=== PATIENT | male | born 1955 | race Caucasian/White ===

== ENCOUNTER → 2022-06-12 14:03 | Outpatient (BNVA) | payer MEDICARE, OTHER, SELFPAY | PROVIDERS: Family Provider Internal Medicine; Visit Provider Nurse Practitioner Family | DX: R68.89 Other general symptoms and signs (principal); U07.1 COVID-19 | CPT/HCPCS: 87426 ==

== ENCOUNTER → 2023-11-13 15:09 | Outpatient (BNVA) | payer MEDICARE, OTHER, SELFPAY | PROVIDERS: Family Provider Internal Medicine; Visit Provider Nurse Practitioner Family | DX: R51.9 Headache, unspecified (principal); R50.9 Fever, unspecified | CPT/HCPCS: 87426 ==

== ENCOUNTER → 2024-01-23 09:00 | Outpatient (BNVA) | payer OTHER, SELFPAY | PROVIDERS: Family Provider Internal Medicine; Visit Provider Internal Medicine Cardiovascular Disease | DX: R55 Syncope and collapse (principal); I49.1 Atrial premature depolarization; I49.3 Ventricular premature depolarization; R00.1 Bradycardia, unspecified; I47.10 Supraventricular tachycardia, unspecified | CPT/HCPCS: 93246 ==

== ENCOUNTER 2024-01-30 10:32 | Outpatient (CLI) | payer OTHER, SELFPAY ==
--- NOTE | 2024-01-30 | ECG_ITS ---
[employer] Test Date: 2024-01-30 Pat Name: Fili Dalton Department: Room: Gender: Male Community Artist: : 1955 Requested By: Lexi Leger Order Number: [id number] Cirilo MD: Nikko Kramer M.D. Interpretive Statements Lung unchanged pre/post procedure; Intraprocedure shortess of breath; Symptoms resoled by discharge PROCEDURE: At the baseline, the EKG revealed sinus bradycardia with a rate of [address] Ts.. The baseline heart was 54 bpm with a blood pressue of 148/71 mm of Hg Lexiscan was infused over a period of 20 seconds. A total of 0.4 milligrams of Lexiscan was infused. The stress phase was continued for a total of 5 minutes. Heart rate at the end of the stress phase was 72 bpm with a blood pressure 130/71 mm of Hg. The EKG at the peak infusion revealed no significant changes. Sestamibi was injected 20 seconds after the Lexiscan infusion. Heart rate at the end of the recovery phase was 65 bpm with a blood pressure was not taken CONCLUSION: 1. No significant EKG changes with the LexiScan infusion 2. No LexiScan induced chest pain or cardiac arrhythmia 3. Normal blood pressure and heart rate response 4. Sestamibi/sestamibi perfusion scan pending; see separate report. Electronically Signed On 02-01-2024 13:04:36 [employer] by Nikko Kramer M.D. [email or web address]
[2024-01-30 10:41] VITALS: BMI 17.9
--- NOTE | 2024-01-30 10:45 | NMCV_ITS ---
NM michelle perf SPECT r/s* [id number] Fili Dalton Age: 68 Gender: M : 1955 Exam Date: 01/30/2024 11:28 Ordering Phys: Lexi Leger MD Technologist: WILBUR Garvin Exam Location: [facility] Indications: cp STRESS TEST Please see separate stress test report in [facility] for full findings IMAGE PROTOCOL Rest/Stress 1 Lexiscan Day Radiopharmaceutical Dose (mCi) Administration Site Administered by Rest: Tc-99m 10.6 IV WILBUR Zacarias Sestamibi Stress:Tc-99m 32.9 IV WILBUR Garvin Sestamijessica Rest: 30-Jan-2024 60 Discovery 630 Stress: 30-Jan-2024 30 Discovery 630 0.4mg Lexiscan. Supine position only as patient was unable to lay prone. SPECT RESULTS Technical Quality: Good Raw Data Analysis: Normal Image Corrections: No attenuation or motion correction applied Summed Stress Score: 0 Summed Rest Score: 0 Summed Difference Score: 0 PERFUSION FINDINGS Uniform myocardial tracer uptake with no significant Perfusion abnormalities. FUNCTIONAL RESULTS (calculated via Gated SPECT) Stress Image LV EF (%): 69 Stress EDV (mL):83 TID: 1.14 Stress ESV (mL):26 FUNCTIONAL FINDINGS: Segmental wall motion analysis revealing no gross wall motion abnormalities IMPRESSIONS 1. Myocardial perfusion imaging revealing uniform myocardial tracer uptake with no significant Perfusion abnormalities. 2. Normal LV ejection fraction of 69%. 3. LV wall motion analysis revealing no gross wall motion abnormalities. 4. Normal LV volume Low probability for coronary ischemia, based on the above findings. No similar previous studies are available for comparison Dr Nikko Kramer MD FAC (Electronically Signed) Final Date: 30 January 2024 13:15 S
[2024-01-30] MEDS: regadenoson 0.4 Mg/5 ml Syringe IVP (12:04)
[2024-01-30 12:17] VITALS: BP 138/76; PULSE 65
== END 2024-01-30 10:33 | disposition home or self-care (01) ==
LOC: CDL 10:33
PROVIDERS: Family Provider Internal Medicine; PCP Family Medicine; Visit Provider Family Medicine
DX: R55 Syncope and collapse (principal); R06.02 Shortness of breath
CPT/HCPCS: 36415; 78452; 93017; 96374; A9500; J2785

== ENCOUNTER 2024-02-07 10:39 | Outpatient (CLI) | payer OTHER, SELFPAY ==
--- NOTE | 2024-02-07 10:47 | USCV_ITS ---
Fili Dalton Age: 68 Gender: M : 1955 Exam Date: 02/07/2024 11:28 Ordering Phys: Lexi Leger MD Technologist: [place] [facility] Ind[place]: mv Risk Factors: Previous Vascular Surgery: Right Brachial BP: / Left Brachial BP: / Right Left Velocity (cm/s) Spectral Plaque Velocity (cm/s) Spectral Plaque Syst/Diast Broadening Syst/Diast Broadening 118.50/19.90 Prox CCA 110.10/ 21.80 101.20/19.70 Mid CCA 96.00 / 21.70 81.30/ 17.90 Distal CCA 83.90 / 19.10 68.00/ 16.20 Prox ICA 65.50 / 18.70 70.60/ 16.20 Mid ICA 80.40 / 20.50 76.20/ 21.90 Distal ICA 79.90 / 27.20 58.10 ECA 69.50 0.90 ICA/CCA 0.00 Antegrade Vertebral Antegrade 35.60/ 7.40 cm/s 55.60/ 13.40 cm/s Bi Subclavian Bi 92.80 60.30 CONCLUSIONS Right ICA stenosis <50%. Mild atheromatous plaque right carotid bulb/ICA. Left ICA stenosis <50%. Mild atheromatous plaque left carotid bulb/ICA. Normal antegrade Doppler flow noted in the right vertebral artery. Normal antegrade Doppler flow noted in the left vertebral artery. Jesus Corcoran MD (Electronically Signed) Final Date: 07 February 2024 15:28 S
== END 2024-02-07 10:40 | disposition home or self-care (01) ==
LOC: RAD 10:39
PROVIDERS: Family Provider Internal Medicine; Visit Provider Family Medicine
DX: G45.9 Transient cerebral ischemic attack, unspecified (principal)
CPT/HCPCS: 93880

== ENCOUNTER 2024-02-10 09:30 | Outpatient (CLI) | payer OTHER, SELFPAY ==
--- NOTE | 2024-02-10 09:37 | MR_ITS ---
WS: [id number] MRI HEAD WITH CONTRAST TECHNIQUE: Sagittal T1, T2 axial, T2 axial FLAIR, axial susceptibility weighted imaging, axial diffus ion weighted images, and coronal T2 images were obtained. Pre and post-T1 axial and post T1 coronal i mages. ADC and FSPGR images. CLINICAL INFORMATION: TIA/SYNCOPAL EPISODES COMPARISON: MRI 2017 FINDINGS: No evidence of restricted diffusion to suggest acute ischemia. Moderate small vessel changes with mod erate parenchymal volume loss.This is slightly progressed compared to 2017.Small vessel changes in th e gautam.No hemosiderin on the susceptibly weighted images. Incidental small incidental eccentric arachnoid cyst LEFT middle cranial fossa. Normal vascular flow voids at the skull base. RIGHT mastoid effusion. Mild mucosal thickening LEFT et hmoid air cells and frontoethmoidal recess. Normal optic chiasm and pituitary infundibulum. Temporal lobes hippocampal formations are normal in a ppearance. No abnormal gadolinium enhancement. Normal dural venous sinuses. MR/MR head wo/w con [id number] IMPRESSION: 1. No evidence of restricted diffusion to suggest acute ischemia. 2. Moderate small vessel changes with moderate parenchymal volume loss. This i s slightly progressed compared to 2017. 3. Small vessel changes in the gautam. 4. RIGHT mastoid effusion. 5. No hemosiderin on the susceptibly weighted images.
[2024-02-10] MEDS: gadobenate dimeglumine 20 mL vial IV (10:05)
== END 2024-02-10 09:31 | disposition home or self-care (01) ==
PROVIDERS: Family Provider Internal Medicine; PCP Family Medicine; Visit Provider Family Medicine
DX: I67.89 Other cerebrovascular disease (principal); H74.91 Unspecified disorder of right middle ear and mastoid
CPT/HCPCS: 70553

== ENCOUNTER → 2024-09-03 10:52 | Outpatient (BNVA) | payer OTHER, SELFPAY | PROVIDERS: Family Provider Internal Medicine; PCP Family Medicine; Visit Provider Nurse Practitioner Family | DX: L57.8 Other skin changes due to chronic exposure to nonionizing radiation (principal); L81.4 Other melanin hyperpigmentation; L30.9 Dermatitis, unspecified | CPT/HCPCS: 11104; 99203 ==

== ENCOUNTER → 2024-09-30 14:13 | Outpatient (BNVA) | payer OTHER, SELFPAY | PROVIDERS: Family Provider Internal Medicine; PCP Family Medicine; Visit Provider Nurse Practitioner Family | DX: L73.9 Follicular disorder, unspecified (principal); L57.8 Other skin changes due to chronic exposure to nonionizing radiation; L81.4 Other melanin hyperpigmentation | CPT/HCPCS: 99214 ==

== ENCOUNTER 2024-11-03 12:22 | Outpatient (CLI) | payer OTHER, SELFPAY ==
--- NOTE | 2024-11-03 12:30 | XRR_ITS ---
PROCEDURE INFORMATION: Exam: XR Lumbosacral Spine Exam date and time: 11/03/2024 12:38 PM Age: 69 years old Clinical indication: Low back pain; Prior surgery; Surgery date: 6+ months; Surgery type: Mult. Abdominal; Chronic lower back pain that radiates down both thighs x 20 plus years. ; Additional info: Lumbosacral spondylosis TECHNIQUE: Imaging protocol: Radiologic exam of the lumbosacral spine. Views: 6 or more views. Including flexion and extension views. COMPARISON: No relevant prior studies available. FINDINGS: Bones/joints: Normal spinal alignment without listhesis on neutral, flexion and extension views. Normal facet alignment on the oblique views without pars defect suggested.Vertebral body heights are maintained without evidence of a compression deformity. Intervertebral disc spaces are grossly maintained. Minimal scattered endplate degenerative changes with small anterolateral osteophytes. No fracture is radiographically apparent. No evidence of an aggressive osseous lesion. Soft tissues: Unremarkable. Intraperitoneal space: Incidental surgical clips in the upper abdomen to the left of midline. Gastrointestinal tract: Mild colonic stool burden. XR/XR lumbar spine 6V w f/e [id number] IMPRESSION: 1. No radiographically apparent acute osseous injury or malalignment. 2. Mild scattered spondylosis.
== END 2024-11-03 12:23 | disposition home or self-care (01) ==
PROVIDERS: Family Provider Internal Medicine; PCP Family Medicine; Visit Provider Student in an Organized Health Care Education/Training Program
DX: M47.817 Spondylosis without myelopathy or radiculopathy, lumbosacral region (principal)
CPT/HCPCS: 72114

== ENCOUNTER → 2024-11-23 09:34 | Outpatient (BNVA) | payer OTHER, SELFPAY | PROVIDERS: Family Provider Internal Medicine; PCP Family Medicine; Visit Provider Dermatology | DX: L73.9 Follicular disorder, unspecified (principal); L30.0 Nummular dermatitis; L81.4 Other melanin hyperpigmentation | CPT/HCPCS: 99214 ==